=== PATIENT | female | born 1975 | race American Indian/Alaskan Native ===

== ENCOUNTER 2017-02-26 21:54 | Emergency (ER) | payer MEDICAID, OTHER ==
[2017-02-26 21:54] VITALS: BMI 38.7
[2017-02-26 22:18] VITALS: BP 141/96; TEMP 98.8; O2SAT 99
--- NOTE | 2017-02-27 01:25 | ED PDOC ---
Arrival/HPI - General Historian: Patient - History of Present Illness Time/Duration: Other (4 PM today) Symptom Onset: Sudden Symptom Course: Worsening - General Chief Complaint: ENT Problem Time Seen by Provider: 02/26/17 23:38 - History of Present Illness Narrative History of Present Illness (Text): 02/27/17 01:26 42-year-old female presents today with left ear pain since 4 PM today. Patient denies any recent trauma or injury. Patient states she took Motrin for pain around 6 PM without improvement. Patient describes a severe throbbing pain in the left ear with slight decrease in hearing. Complaining of headache and jaw pain. Denies chest pain or shortness of breath. Patient states she had URI symptoms for the past few days. Denies abdominal pain. No vomiting. No other complaints (CoyiaFrancie) Past Medical History - Provider Review Nursing Documentation Reviewed: Yes - Travel History Have you recently traveled outside [place] w/in the past 3 mons?: No - Infectious Disease Hx of Infectious Diseases: None - Tetanus Immunization Tetanus Immunization: Unknown - Cardiac Hx Cardiac Disorders: Yes Other/Comment: HEART MURMUR - Pulmonary Hx Respiratory Disorders: No - Neurological Hx Neurological Disorder: No - HEENT Hx HEENT Disorder: No - Renal Hx Renal Disorder: No - Endocrine/Metabolic Hx Endocrine Disorders: Yes Other/Comment: WORK UP IN PROGRESS FOR THYROID DISEASE - Hematological/Oncological Hx Blood Disorders: Yes Hx Anemia: Yes Hx Blood Transfusions: No Hx Cancer: Yes (colon) Hx Sickle Cell Trait: Yes Hx Sickle Cell Disease: No - Integumentary Hx Dermatological Disorder: No - Musculoskeletal/Rheumatological Hx Musculoskeletal Disorders: No - Gastrointestinal Hx Gastrointestinal Disorders: Yes Hx Bowel Surgery: Yes (2013 PARTIAL BOWEL RESECTION) Other/Comment: COLON CANCER 2014 - Genitourinary/Gynecological Hx Genitourinary Disorders: Yes Other/Comment: FIBROIDS AND ENDOMETREOSIS WITH HYSTERECTOMY IN 2014 - Psychiatric Hx Psychophysiologic Disorder: No Hx Anxiety: No Hx Bipolar Disorder: No Hx Depression: No Hx Emotional Abuse: No Hx Hallucinations: No Hx Panic Disorder: No Hx Post Traumatic Stress Disorder: No Hx Psychosis: No Hx Physical Abuse: No Hx Schizophrenia: No Hx Sexual Abuse: No Hx Substance Use: No - Surgical History Hx Hysterectomy: Yes Other/Comment: Manav-colectomy - Anesthesia Hx Anesthesia: Yes Hx Anesthesia Reactions: Yes (RASHES WHILE IN ICU) Hx Malignant Hyperthermia: No - Suicidal Assessment Feels Threatened In Home Enviroment: No Family/Social History - Physician Review Nursing Documentation Reviewed: Yes Family/Social History: Unknown Family HX Smoking Status: Former Smoker Hx Alcohol Use: No Hx Substance Use: No Allergies/Home Meds Allergies/Adverse Reactions: Allergies No Known Allergies Allergy (Verified 08/23/15 10:47) Review of Systems - Review of Systems Constitutional: absent: Fatigue, Fevers ENT: Hearing Changes, Sinus Congestion, Other (LEft ear pain) Respiratory: absent: SOB, Cough Cardiovascular: absent: Chest Pain Gastrointestinal: absent: Abdominal Pain, Nausea, Vomiting Genitourinary Female: absent: Dysuria Musculoskeletal: absent: Arthralgias Skin: absent: Rash, Pruritis Neurological: Headache. absent: Dizziness Physical Exam Vital Signs Reviewed: Yes Temperature: Afebrile Blood Pressure: Hypertensive Pulse: Regular Respiratory Rate: Normal Appearance: Positive for: Well-Appearing, Non-Toxic, Comfortable Pain Distress: None Mental Status: Positive for: Alert and Oriented X 3 - Systems Exam Head: Present: Atraumatic Ears: Present: Erythema (left tm erythema; ), Normal Canal, Other (no mastoid tenderness or erythema. ). No: NORMAL TM, TM Perf Mouth: Present: Moist Mucous Membranes, Normal Tounge, Normal Teeth. No: Drooling, Trismus Pharnyx: Present: Normal. No: ERYTHEMA, EXUDATE, TONSILS ENLARGED, Peritonsilar Swelling, Uvular Deviation, Muffled/Hoarse Voice Nose (External): Present: Atraumatic Neck: Present: Normal Range of Motion. No: Lymphadenopathy Respiratory/Chest: Present: Clear to Auscultation, Good Air Exchange. No: Respiratory Distress, Accessory Muscle Use Cardiovascular: Present: Regular Rate and Rhythm Neurological: Present: GCS=15 Skin: Present: Warm, Dry, Normal Color. No: Rashes Psychiatric: Present: Alert, Oriented x 3 Medical Decision Making ED Course and Treatment: 02/27/17 02:01 Patient is nontoxic well appearing in no distress. Vital signs are stable Toradol, amoxicillin I advised follow up with primary care physician within the next 2 days, advised to increase fluids take medications as prescribed and return if symptoms worsen persist or if new symptoms develop Patient verbalizes understanding of discharge instructions and need for immediate followup. all aspects of this case were discussed the attending of record. IMPRESSION; otitis media Motrin every 6 hours as needed for pain/fever reduction percocet; 1 tablet every 6 hours as needed for moderate to severe pain; may cause drowsiness. Increase fluids Amoxicilllin three times daily x10 days Follow up primary care physician within the next 2 days Return if symptoms worsen persist or if the symptoms develop (Francie Wilde) - Medication Orders Current Medication Orders: Discontinued Medications Amoxicillin (Amoxil 500 Mg Cap) 500 mg PO STAT STA PRN Reason: Protocol Stop: 02/26/17 23:39 Last Admin: 02/26/17 23:47 Dose: 500 mg Ketorolac Tromethamine (Toradol) 60 mg IM STAT STA Stop: 02/26/17 23:39 Last Admin: 02/26/17 23:47 Dose: 60 mg Ketorolac Tromethamine (Toradol) Confirm Administered Dose 60 mg .ROUTE .STK- MED ONE Stop: 02/26/17 23:42 Last Admin: 02/26/17 23:48 Dose: Disposition/Present on Arrival - Present on Arrival Any Indicators Present on Arrival: No History of DVT/PE: No History of Uncontrolled Diabetes: No Urinary Catheter: No History of Decub. Ulcer: No History Surgical Site Infection Following: None - Disposition Have Diagnosis and Disposition been Completed?: Yes Disposition Time: 12:07 Patient Plan: Discharge - Disposition Diagnosis: Otitis media Disposition: HOME/ ROUTINE Condition: GOOD Discharge Instructions (ExitCare): Otitis Media (ED) Additional Instructions: Motrin every 6 hours as needed for pain/fever reduction percocet; 1 tablet every 6 hours as needed for moderate to severe pain; may cause drowsiness. Increase fluids Amoxicilllin three times daily x10 days Follow up primary care physician within the next 2 days Return if symptoms worsen persist or if the symptoms develop Prescriptions: Amoxicillin 500 mg PO TID #30 tab Ibuprofen [Motrin] 600 mg PO Q6H PRN #20 tab PRN Reason: pain/fever reduction oxyCODONE/Acetaminophen [Percocet 5/325 mg Tab] 1 tab PO Q6H PRN #6 tab PRN Reason: moderate to severe pain Referrals: Corinne Ortega MD [Primary Care Provider] - Follow up with primary Gregory Cantor DO [Staff Provider] - Follow up with primary Forms: [id number] (Faroese), WORK NOTE
[2017-02-27 01:33] VITALS: PULSE 89; RESP 18
== END 2017-02-27 01:32 | disposition home or self-care (01) ==
LOC: ED 21:54
DX: H66.92 Otitis media, unspecified, left ear (principal)
CPT/HCPCS: 96372; 99283; J1885